=== PATIENT | female | born 1950 | race Caucasian/White ===

== ENCOUNTER → 2017-03-13 | Outpatient (CLI) | payer OTHER ==
[~2017-03-13] MED LIST: ASPIRIN FOR CHI81 MG; CAPOTEN50 MG; CLARITIN5 MG/5 ML; IBUPROFEN600 MG PO; LOVASTATIN10 MG PO; MECLIZINE HCL50 MG PO; METHIMAZOLE5 MG; NORCO 325 MG-51 TAB PO; SYNTHROID0.125 MG PO
== END ==
LOC: RAD 11:20
DX: I10 Essential (primary) hypertension (principal); R05 Cough; R06.02 Shortness of breath

== ENCOUNTER → 2017-04-03 | Outpatient (CLI) | payer OTHER | LOC: US 03-24 17:00 | DX: C73 Malignant neoplasm of thyroid gland (principal); F41.9 Anxiety disorder, unspecified; R00.2 Palpitations; E89.0 Postprocedural hypothyroidism ==

== ENCOUNTER → 2017-04-16 | Outpatient (CLI) | payer OTHER | END | disposition home or self-care (01) | LOC: CARD 09:22 | DX: I08.1 Rheumatic disorders of both mitral and tricuspid valves (principal); I37.1 Nonrheumatic pulmonary valve insufficiency; I10 Essential (primary) hypertension ==

== ENCOUNTER → 2017-09-24 | Outpatient (CLI) | payer OTHER | END | disposition home or self-care (01) | LOC: MAMMO 09:16 | DX: Z12.31 Encounter for screening mammogram for malignant neoplasm of breast (principal) ==

== ENCOUNTER → 2019-08-11 | Outpatient (CLI) | payer OTHER, MEDICAID | END | disposition home or self-care (01) | LOC: US 14:59 | DX: R60.0 Localized edema (principal); M79.604 Pain in right leg ==

== ENCOUNTER → 2019-09-15 | Outpatient (CLI) | payer OTHER, MEDICAID | END | disposition home or self-care (01) | LOC: ORTHO 00:26 | DX: M17.11 Unilateral primary osteoarthritis, right knee (principal) ==

== ENCOUNTER → 2022-09-30 | Outpatient (CLI) | payer OTHER, MEDICAID | END | disposition home or self-care (01) | LOC: RAD 14:34 | PROVIDERS: ATTEND Nurse Practitioner Family | DX: J43.9 Emphysema, unspecified (principal); J98.11 Atelectasis; R05.8 Other specified cough; C55 Malignant neoplasm of uterus, part unspecified; R06.2 Wheezing; J02.9 Acute pharyngitis, unspecified ==